=== PATIENT | male | born 1945 | race Caucasian/White ===

== ENCOUNTER 2022-04-13 05:41 | Outpatient (CLI) | payer MEDICARE, OTHER ==
[~2022-04-13] VITALS: Ht 175.3 cm; Wt 97.3 kg
[2022-04-13] MEDS ORDERED: OMEP-401 PO (14:57)
[2022-04-13] MEDS ORDERED: FINA5TAB6 PO (14:57)
[2022-04-13] MEDS ORDERED: TMSL.4C PO (14:57)
[2022-04-13] MEDS ORDERED: DOXA8TAB73 PO (14:57)
[2022-04-13] MEDS ORDERED: ASPI-999 PO (14:57)
[2022-04-13] MEDS ORDERED: METO50TA7 PO (14:57)
[2022-04-13] MEDS ORDERED: FLUT9.9S NS (14:57)
[2022-04-13] MEDS ORDERED: SIMV20TA26 PO (14:57)
[2022-04-13] MEDS ORDERED: DILT240C90 PO (14:57)
== END 2022-04-13 15:00 | disposition home or self-care (01) ==
LOC: PREOP 05:41
PROVIDERS: ATTEND Otolaryngology Otolaryngology/Facial Plastic Surgery
DX: Z01.818 Encounter for other preprocedural examination (principal)

== ENCOUNTER 2022-04-20 07:53 | Day surgery (SDC) | payer MEDICARE, OTHER ==
[~2022-04-20] VITALS: Ht 175.3 cm; Wt 97.3 kg
[2022-04-20] VITALS (9 sets, daily range): BP systolic 86–103; BP diastolic 48–57
[~2022-04-20 07:53] MED LIST: ASPI-999 PO; DILT240C90 PO; DOXA8TAB73 PO; FINA5TAB6 PO; FLUT9.9S NS; METO50TA7 PO; OMEP-401 PO; SIMV20TA26 PO; TMSL.4C PO
--- NOTE | 2022-04-20 08:22 | Progress Note-Pre Operative ---
Pre-Operative Progress Note Date of Available H&P: Apr 20, 2022 Date H&P Reviewed: Apr 20, 2022 Time H&P Reviewed: 08:00 History & Physical: H&P Reviewed, Patient Examed, No changes noted Changes from last HP none Pre-Operative Diagnosis: Chronic Lest CHRISTIAN, Pos Right DOUG HARRIS MD Apr 20, 2022 08:22
[2022-04-20] MEDS ORDERED: fentaNYL INJ 100 MCG/2 ML AMP ONE (08:28)
[2022-04-20] MEDS ORDERED: LACTATED RINGERS 1,000 ML IV PRN (08:30)
--- NOTE | 2022-04-20 09:07 | Progress Note-Post Operative ---
Post-Operative Progess Note Surgeon (s)/Game Room Attendant (s) Surgeon DOUG HARRIS MD Game Room Attendant n/a Pre-Operative Diagnosis Chronic Lest CHRISTIAN, Pos Right Post-Operative Diagnosis same Post-Op Procedure Note Date of Procedure: Apr 20, 2022 Name of Procedure Performed: BMT Description & Findings Description and Findings: n/a Anesthesia Type lma Estimated Blood Loss minimal Packing none. Specimen(s) collected/removed none DOUG HARRIS MD Apr 20, 2022 09:07
[2022-04-20] MEDS ORDERED: APAP 325 MG/10.15 ML LIQ (TYLENOL) UDC PO PRN (09:15)
[2022-04-20] MEDS ORDERED: LIDOCAINE PF 2% 5 ML (XYLOCAINE) VIAL ONE (09:17)
[2022-04-20] MEDS ORDERED: ONDANSETRON 4 MG/2 ML (SDV) Z0FRAN ONE (09:17)
[2022-04-20] MEDS ORDERED: proPOfol 200 MG/20 ML (DIPRIVAN) VIAL IV ONE (09:17)
--- NOTE | 2022-04-20 09:24 | Anesthesia-General Post-Op ---
General Patient Condition Mental Status/LOC: Same as Preop Cardiovascular: Satisfactory Nausea/Vomiting: Absent Respiratory: Satisfactory Pain: Controlled Complications: Absent Post Op Complications Complications None Follow Up Care/Instructions Patient Instructions None needed. Anesthesia/Patient Condition Patient Condition Patient is doing well, no complaints, stable vital signs, no apparent adverse anesthesia problems. No complications reported per nursing. YULIANA JUNIOR CRNA Apr 20, 2022 09:24
== END 2022-04-20 10:45 ==
LOC: SDC 07:53
PROVIDERS: ATTEND Otolaryngology Otolaryngology/Facial Plastic Surgery
DX: H66.93 Otitis media, unspecified, bilateral (principal); T85.898A Other specified complication of other internal prosthetic devices, implants and grafts, initial encounter; H90.6 Mixed conductive and sensorineural hearing loss, bilateral; Y83.8 Other surgical procedures as the cause of abnormal reaction of the patient, or of later complication, without mention of misadventure at the time of the procedure
CPT/HCPCS: 87081